=== PATIENT | male | born 1960 | race Caucasian/White ===

== ENCOUNTER → 2018-05-16 | Outpatient (CLI) | payer MEDICARE | LOC: M.RAD 05-11 14:43 | DX: R07.89 Other chest pain (principal) ==

== ENCOUNTER → 2018-05-28 | Outpatient (CLI) | payer MEDICARE ==
--- NOTE | 2018-06-20 12:45 | 24HR ---
[place] [address] [employer] MONITOR REPORT Name: CHERYL PATEL Room: [facility]#: [id number] Admission: 05/28/18 Attend Phys: Nelida Harding Discharge: Date of : 56 Date of Service: 05/29/181646 Report #: [id number] THIS REPORT FOR: //name// [facility] Test Date: 2018-05-29 Test Time: 11:33:44 Pat Name: CHERYL PATEL Department: Room: Gender: Log Clerk: : 1960 Requested By: Nelida Harding Order Number: [id number] Jennifer MD: Interpretive Statements sinus rhythm at rates of 47-130, average 78 occasional PAC's with rare atrial couplets rare isolated PVC's no significant pauses no complaints recorded on diary Electronically Signed On 05-29-2018 16:47:29 CDT by Randy Garza [email or web address] By: 46 [id number] Randy [email or web address] MD, FACC /JW
== END ==
LOC: M.CRD 10:00
DX: G25.81 Restless legs syndrome (principal); R55 Syncope and collapse; R07.89 Other chest pain

== ENCOUNTER → 2018-05-29 | Outpatient (CLI) | payer MEDICARE | LOC: M.ULTRA 09:45 | DX: G25.81 Restless legs syndrome (principal); R55 Syncope and collapse; R07.89 Other chest pain ==